=== PATIENT | born 1955 | race Caucasian/White ===

== ENCOUNTER → 2024-02-10 11:11 | Outpatient (BNVA) | payer MEDICARE, SELFPAY | PROVIDERS: Referring Provider Emergency Medicine; Visit Provider Specialist | DX: G60.9 Hereditary and idiopathic neuropathy, unspecified (principal); G44.209 Tension-type headache, unspecified, not intractable; G62.9 Polyneuropathy, unspecified | CPT/HCPCS: 36415; 82607; 82746; 83921; 84443; 85651; 86140; 86334; 86431; 99203; 99204 ==